=== PATIENT | female | born 1990 | race Caucasian/White ===

== ENCOUNTER 2016-08-16 11:24 | Emergency (ER) | payer OTHER ==
[~2016-08-16] VITALS: Wt 114.0 kg
[~2016-08-16 11:24] MED LIST: CYCL-319 PO; HYDR-3498 PO; NAPR-688 PO
[2016-08-16] MEDS ORDERED: AMOX1TAB10 PO (12:19)
--- NOTE | 2016-08-16 12:22 | ERD ---
ER Documentation Chief Complaint Date/Time DATE: 08/16/16 TIME: 12:21 Chief Complaint swelling upper lip x1day HPI This 26-year-old female presents with swelling on the upper lip for 1 day. She is an additional history that her dog bit her on her upper lip yesterday. She denies fevers, difficulty swallowing, difficulty breathing. She feels that it is been more or less the same since yesterday. Her tetanus is not up-to-date. ROS All systems reviewed and are negative except as per history of present illness. Medications Home Meds Active Scripts Amoxicillin/Potassium Clav (Amox-Clav 875-125 mg Tablet) 875-125 mg Tab, 1 TAB PO BID for 7 Days, #14 TAB Prov:SANDIE KLEIN MD 08/16/16 Cyclobenzaprine Hcl* (Cyclobenzaprine Hcl*) 10 Mg Tablet, 10 MG PO TID, #15 TAB Prov:KASSIE MARTINEZ PA-C 06/15/15 Naproxen* (Naproxen*) 500 Mg Tablet, 500 MG PO BID Y for PAIN, #30 TAB Prov:KASSIE MARTINEZ PA-C 06/15/15 Hydrocodone Bit-Acetaminophen* ([place]*) 5-325 Mg Tab, 1 TAB PO Q6 Y for PAIN, # 7 TAB Prov:KASSIE MARTINEZ PA-C 06/15/15 Allergies Allergies: Coded Allergies: No Known Allergy (Unverified , 08/16/16) PMhx/Soc History of Surgery: Yes (KNEE SURGERY 6TH GRADE) Anesthesia Reaction: No Hx Neurological Disorder: No Hx Respiratory Disorders: No Hx Cardiac Disorders: No Hx Psychiatric Problems: No Hx Miscellaneous Medical Probl: No Hx Alcohol Use: No Hx Substance Use: No Hx Tobacco Use: No Smoking Status: Never smoker Physical Exam Vitals Vital Signs Date Time Temp Pulse Resp B/P Pulse Ox O2 Delivery O2 Flow Rate FiO2 08/16/16 11:27 98.0 106 18 178/86 98 Physical Exam Const: [] Alert, [id number] per Head: Atraumatic Eyes: Normal Conjunctiva ENT: Normal External Ears, Nose and Mouth. There is some mild swelling of the upper lip. There is a small approximately 0.5 cm superficial abrasion with some slight surrounding redness. Is no appreciable induration, fluctuance Neck: Full range of motion..~ No meningismus. Resp: Clear to auscultation bilaterally Cardio: Regular rate and rhythm, no murmurs Abd: Soft, non tender, non distended. Normal bowel sounds Skin: No petechiae or rashes Back: No midline or flank tenderness Ext: No cyanosis, or edema Neur: Awake and alert Psych: Normal Mood and Affect Results 24 hrs Current Medications Medications (Trade) Dose Ordered Sig/Jovanna Route PRN Reason Start Time Stop Time Status Last Admin Dose Admin Diphtheria/ Tetanus/Acell Pertussis (Adacel) 0.5 ml ONCE ONCE IM* 08/16/16 12:30 08/16/16 12:31 08/16/16 12:19 Amoxicillin/ Clavulanate Potassium (Augmentin) 875 mg ONCE ONCE PO 08/16/16 12:30 08/16/16 12:31 Procedures/MDM This patient presents status post dog bite in the upper lip with some slight surrounding redness suggestive of infection although this may be due to crush injury as well. Nonetheless., Patient will be treated with Augmentin, instructions for warm compresses, and instructions to recheck for increased redness, swelling, fevers, new or worsening symptoms. There is no signs of symptoms of abscess, significant cellulitis, sepsis. Patient was given a tetanus booster as well Departure Diagnosis: Primary Impression: Dog bite Encounter type: initial encounter Qualified Code: W54.0XXA - Dog bite, initial encounter Condition: Stable Patient Instructions: Dog Bite Additional Instructions: Apply warm compresses. Recheck for worsening redness, fevers, swelling, new or worsening symptoms. SANDIE KLEIN MD Aug 16, 2016 12:22
[2016-08-16] MEDS ORDERED: AMOXICILLIN/CLAV 875 MG TAB PO ONE (12:30)
[2016-08-16] MEDS ORDERED: DIPHTH/TET/ACEL PERTUSS (ADULT) 0.5 ML VIAL IM* ONE (12:30)
== END 2016-08-16 13:30 | disposition home or self-care (01) ==
LOC: FTE 11:24
DX: S01.551A Open bite of lip, initial encounter (principal); W54.0XXA Bitten by dog, initial encounter; Y92.9 Unspecified place or not applicable; Z23 Encounter for immunization
CPT/HCPCS: 90471; 90715